=== PATIENT | male | born 1960 | race Caucasian/White ===

== ENCOUNTER 2017-09-01 18:31 | Emergency (ER) | payer OTHER ==
[~2017-09-01] VITALS: Ht 170.2 cm; Wt 89.0 kg
[~2017-09-01 18:31] MED LIST: HYDR25SU23 PR; IBUP-1542 PO; TRAM50TA2 PO
[2017-09-01 18:35] VITALS: Ht 170.2 cm; Wt 89.0 kg
[2017-09-01] MEDS ORDERED: HYDR30CR75 PR (20:57)
--- NOTE | 2017-09-01 21:04 | ERD ---
ER Documentation Chief Complaint Date/Time DATE: 09/01/17 TIME: 20:59 Chief Complaint Pt reports rectal bleeds similar to hemorrhoids for 4 weeks HPI This is a 57-year-old male presents to the ER with rectal itching for the last month. Patient denies any rectal bleed, as stated on chief complaint,he is a Pashto-speaking patient only, and likely misunderstood at triage. he denies any anal pain he denies any constipation, diarrhea. He denies any fevers or chills. He denies abdominal pain. ROS 12 point review of systems was done, all negative except per HPI. Medications Home Meds Active Scripts Hydrocortisone Acetate* (Anusol-HC*) 30 Gm Cream.gm., 1 APPLIC ID BID for 7 Days , TUB Prov:VIANCA HAWKINS 09/01/17 Hydrocortisone Acetate (Anusol-Hc) 25 Mg Supp.rect, 1 SUPP ID BID Y for HEMORROID PAIN/ITCHING, #12 SUPP.RECT Prov:BELGICA DOUGHERTY PA-C 07/29/16 Ibuprofen* (Motrin*) 600 Mg Tab, 600 MG PO Q6, #30 TAB Prov:BELGICA DOUGHERTY PA-C 07/29/16 Tramadol HCl (Tramadol HCl) 50 Mg Tablet, 50 MG PO Q4 Y for PAIN, #20 TAB Prov:BELGICA DOUGHERTY PA-C 07/29/16 Allergies Allergies: Coded Allergies: No Known Allergy (Unverified , 09/01/17) PMhx/Soc Medical and Surgical Hx: pt denies Medical Hx, pt denies Surgical Hx Hx Alcohol Use: No Hx Substance Use: No Hx Tobacco Use: No Smoking Status: Never smoker Physical Exam Vitals Vital Signs Date Time Temp Pulse Resp B/P Pulse Ox O2 Delivery O2 Flow Rate FiO2 09/01/17 18:35 98.1 95 18 135/89 95 Physical Exam GENERAL: The patient is well developed and appropriate for usual state of health , in no apparent distress. HEENT: Atraumatic. CHEST: Clear to auscultation bilaterally. There are no rales, wheezes or rhonchi. HEART: Regular rate and rhythm. No murmurs, clicks, rubs or gallops. ABDOMEN: Soft, nontender and nondistended RECTAL: no external hemorrhoids, no masses, tape was used to search for pinworms however none were found. there is some erythema surrounding the anus, not abscess or pain. NEURO: Alert and oriented. Procedures/MDM This is a 57-year-old male presents to the ER with anal itching, patient likely has anal itching secondary to poor hygiene versus dermatitis. No evidence of external hemorrhoids or pinworms. Afebrile and well-appearing there is no evidence of anal abscesses. Again patient does not have any rectal bleeding, he was misunderstood at triage. Patient will be sent with hydrocortisone and he was counseled on proper hygiene. Patient is to follow-up with his primary care doctor within 1-2 days return to ER sooner if symptoms worsen. My medical decision making shared with the patient he understands and agrees with plan. Departure Diagnosis: Primary Impression: Anal itching Condition: Stable Patient Instructions: Pruritis Ani (Anal Itching) Additional Instructions: Llame al doctor MAANA y yina silvana MIKE PARA DENTRO DE 1-2 BOYLE.Dgale a la secretaria que nosotros le instruimos hacer esta mike.Avise o llame si hairston condicin se empeora antes de la mike. Regresa aqui si peor o no mejor. VIANCA HAWKINS Sep 01, 2017 21:04
== END 2017-09-01 21:15 | disposition home or self-care (01) ==
LOC: FTE 18:31
DX: L29.0 Pruritus ani (principal)
CPT/HCPCS: 99284

== ENCOUNTER 2018-01-28 09:36 | Emergency (ER) | END 2018-01-28 11:54 | disposition home or self-care (01) ==

== ENCOUNTER 2018-02-05 22:30 | Emergency (ER) | END 2018-02-06 02:48 | disposition home or self-care (01) ==

== ENCOUNTER 2019-01-26 08:57 | Emergency (ER) | payer OTHER ==
[~2019-01-26] VITALS: Wt 76.2 kg
[~2019-01-26 08:57] MED LIST changes: +DOCU-144 PO; +HYDR30CR75 PR; +MINE133E23 PR; +ONDA4TAB14 PO; +POLY17PO6 PO
[2019-01-26 09:01] VITALS: RESP 20
[2019-01-26] MEDS ORDERED: NAPR-985 PO (10:39)
[2019-01-26] MEDS ORDERED: MED4DP PO (10:39)
[2019-01-26 11:41] VITALS: BP 114/77; PULSE 80
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
== END 2019-01-26 11:43 | disposition home or self-care (01) ==
LOC: FTE 08:57
DX: M54.12 Radiculopathy, cervical region (principal)
CPT/HCPCS: 36415; 71045; 80053; 84484; 85025; 93005; Z7502

== ENCOUNTER 2019-08-27 10:49 | Emergency (ER) | payer OTHER ==
[~2019-08-27] VITALS: Ht 167.6 cm; Wt 80.2 kg
[~2019-08-27 10:49] MED LIST changes: +MED4DP PO; +NAPR-985 PO
[2019-08-27 11:28] VITALS: BP 134/81; PULSE 83; RESP 20; Ht 167.6 cm; Wt 80.2 kg
[2019-08-27] MEDS ORDERED: KETOROLAC 30 MG INJ IM STA (12:30)
== END 2019-08-27 13:00 | disposition home or self-care (01) ==
LOC: FTE 10:49
DX: M25.562 Pain in left knee (principal); M25.572 Pain in left ankle and joints of left foot
CPT/HCPCS: 96372; J1885; Z7502